=== PATIENT | male | born 1980 | race Caucasian/White ===

== ENCOUNTER 2018-08-08 17:49 | Emergency (ER) | payer OTHER ==
[2018-08-08 18:32] LABS: ADD MAN DIFF? NO
[2018-08-08 18:36] LABS: WHITE BLOOD COUNT 4.6 10^3/ul (4.8-10.8)
[2018-08-08 18:36] LABS: ABNORMAL IP MESSAGE 1; BASOPHILS % 0.4 % (0.0-2.0); EOSINOPHILS # 0.2 10^3/ul (0.0-0.5); EOSINOPHILS % 3.7 % (0.0-7.0); HEMATOCRIT 28.8 % (42.0-52.0); HEMOGLOBIN 9.1 g/dl (14.0-18.0); LYMPHOCYTES # 0.4 10^3/ul (0.8-2.9); LYMPHOCYTES % 8.6 % (15.0-51.0); MEAN CORPUSCULAR HEMOGLOBIN 29.7 pg (29.0-33.0); MEAN CORPUSCULAR HGB CONC 31.6 g/dl (32.0-37.0); MEAN CORPUSCULAR VOLUME 94.1 fl (82.0-101.0); MEAN PLATELET VOLUME 9.7 fl (7.4-10.4); MONOCYTE # 0.5 10^3/ul (0.3-0.9); MONOCYTES % 10.8 % (0.0-11.0); NEUTROPHIL # 3.5 10^3/ul (1.6-7.5); NEUTROPHILS % 76.1 % (39.0-77.0); PLATELET COUNT 135 10^3/UL (140-415); POSITIVE DIFF @See below; RED BLOOD COUNT 3.06 10^6/ul (4.70-6.10); RED CELL DISTRIBUTION WIDTH 14.6 % (11.5-14.5)
[2018-08-08] MEDS: HYDROmorphONE 0.5 MG/0.5 ML SYG IV (18:48)
[2018-08-08] MEDS: PANTOPRAZOLE IV 80 MG in SOD CHLORIDE 0.9% 100 ML IVPB (18:49)
[2018-08-08 18:51] LABS: INR 0.95; PROTIME 12.8 Sec (11.9-14.9)
[2018-08-08 18:58] LABS: ALANINE AMINOTRANSFERASE 23 IU/L (13-69); ALBUMIN 4.3 g/dl (3.3-4.9); ALBUMIN/GLOBULIN RATIO 1.86; ALKALINE PHOSPHATASE 96 IU/L (42-121); ANION GAP 16 (8-16); ASPARTATE AMINO TRANSFERASE 27 IU/L (15-46); BILIRUBIN,INDIRECT 0.1 mg/dl (0-1.1); BILIRUBIN,TOTAL 0.1 mg/dl (0.2-1.3); BLOOD UREA NITROGEN 32 mg/dl (7-20); CALCIUM 10.9 mg/dl (8.4-10.2); CARBON DIOXIDE 27 mmol/L (21-31); CHLORIDE 98 mmol/L (97-110); CREATININE 9.02 mg/dl (0.61-1.24); GLUCOSE 117 mg/dl (70-220); SODIUM 136 mmol/L (135-144); TOTAL PROTEIN 6.6 g/dl (6.1-8.1)
[2018-08-08 19:01] LABS: POTASSIUM 5.3 mmol/L (3.5-5.1)
[2018-08-08 19:11] LABS: TROPONIN-I 0.013 ng/ml (0.000-0.120)
[2018-08-08 19:37] LABS: OCCULT BLOOD STOOL NEGATIVE (NEGATIVE)
[2018-08-08] MEDS: LIDOCAINE/MYLANTA 40 ML BTL PO (20:30)
[2018-08-08] MEDS: SOD CHLORIDE 0.9% 500 ML IV (20:30)
[2018-08-08] MEDS: ONDANSETRON 4 MG INJ IV (20:30)
== END 2018-08-08 22:02 | disposition home or self-care (01) ==
LOC: E/R 17:49
DX: R19.7 Diarrhea, unspecified (principal); D64.9 Anemia, unspecified; D69.6 Thrombocytopenia, unspecified; E87.5 Hyperkalemia; K59.00 Constipation, unspecified; N30.91 Cystitis, unspecified with hematuria; I12.0 Hypertensive chronic kidney disease with stage 5 chronic kidney disease or end stage renal disease; N18.6 End stage renal disease; Z79.82 Long term (current) use of aspirin; Z72.89 Other problems related to lifestyle; Z95.0 Presence of cardiac pacemaker; Z99.2 Dependence on renal dialysis
CPT/HCPCS: 71045; 74176; 80053; 82270; 84484; 85025; 85610; 85730; 86850; 86870; 86900; 86901; 86902; 93005; 96374; 96375; 99285-25

== ENCOUNTER 2019-02-19 11:59 | Emergency (ER) | payer OTHER ==
[~2019-02-19 11:59] MED LIST: NIFEdipine (XL) 90 MG TAB PO
[2019-02-19 12:39] LABS: ADD MAN DIFF? NO
[2019-02-19 12:41] LABS: WHITE BLOOD COUNT 5.3 10^3/ul (4.8-10.8)
[2019-02-19 12:41] LABS: ABNORMAL IP MESSAGE 1; BASOPHILS % 0.4 % (0.0-2.0); EOSINOPHILS # 0.2 10^3/ul (0.0-0.5); EOSINOPHILS % 2.8 % (0.0-7.0); HEMATOCRIT 28.8 % (42.0-52.0); HEMOGLOBIN 9.3 g/dl (14.0-18.0); LYMPHOCYTES # 0.3 10^3/ul (0.8-2.9); LYMPHOCYTES % 6.3 % (15.0-51.0); MEAN CORPUSCULAR HEMOGLOBIN 29.8 pg (29.0-33.0); MEAN CORPUSCULAR HGB CONC 32.3 g/dl (32.0-37.0); MEAN CORPUSCULAR VOLUME 92.3 fl (82.0-101.0); MEAN PLATELET VOLUME 9.2 fl (7.4-10.4); MONOCYTE # 0.5 10^3/ul (0.3-0.9); MONOCYTES % 9.5 % (0.0-11.0); NEUTROPHIL # 4.3 10^3/ul (1.6-7.5); NEUTROPHILS % 80.6 % (39.0-77.0); PLATELET COUNT 153 10^3/UL (140-415); POSITIVE DIFF @See below; RED BLOOD COUNT 3.12 10^6/ul (4.70-6.10); RED CELL DISTRIBUTION WIDTH 14.2 % (11.5-14.5)
[2019-02-19] MEDS: ASPIRIN 81 MG TAB PO (12:44)
[2019-02-19] MEDS: ONDANSETRON 4 MG INJ IV ×2 (12:45→14:27)
[2019-02-19] MEDS: morphine 4 MG/ML VIAL IV (12:46)
[2019-02-19] MEDS: hydrALAzine 20 MG INJ IV ×2 (12:49→14:35)
[2019-02-19] MEDS: CALCIUM GLUCONATE 10% 1 GM in DEXTROSE 5% 100 ML IVPB (12:49)
[2019-02-19 13:00] LABS: INR 0.84; PROTIME 11.6 Sec (11.9-14.9); PT RATIO 0.9
[2019-02-19 13:01] LABS: PARTIAL THROMBOPLASTIN TIME 34.7 Sec (23.0-35.0)
[2019-02-19 13:03] LABS: ALANINE AMINOTRANSFERASE 20 IU/L (13-69); ALBUMIN 4.5 g/dl (3.3-4.9); ALBUMIN/GLOBULIN RATIO 1.55; ALKALINE PHOSPHATASE 119 IU/L (42-121); ANION GAP 15 (5-13); ASPARTATE AMINO TRANSFERASE 28 IU/L (15-46); BLOOD UREA NITROGEN 54 mg/dl (7-20); CALCIUM 10.6 mg/dl (8.4-10.2); CARBON DIOXIDE 22 mmol/L (21-31); CHLORIDE 96 mmol/L (97-110); GLUCOSE 130 mg/dl (70-220); LIPASE 160 U/L (23-300); SODIUM 133 mmol/L (135-144); TOTAL PROTEIN 7.4 g/dl (6.1-8.1)
[2019-02-19 13:05] LABS: POTASSIUM 5.9 mmol/L (3.5-5.1)
[2019-02-19 13:09] LABS: Estimated GFR 4 mL/min (>60)
[2019-02-19 13:12] LABS: CREATININE 13.85 mg/dl (0.61-1.24)
[2019-02-19 13:14] LABS: TROPONIN-I < 0.012 ng/ml (0.000-0.120)
[2019-02-19] MEDS: HYDROmorphONE 0.5 MG/0.5 ML SYG IV (13:53)
[2019-02-19] MEDS: DIPHENHYDRAMINE 50 MG INJ IV ×2 (14:28→16:16)
[2019-02-19] MEDS: NA BICARBONATE 8.4% 50 ML SYG IV (14:28)
[2019-02-19] MEDS ORDERED: ONDANSETRON 4 MG INJ IV ×2 (14:30→19:30)
[2019-02-19] MEDS ORDERED: ACETAMINOPHEN 325 MG TAB PO ×2 (14:30→19:30)
[2019-02-19] MEDS: LORAZEPAM 2 MG INJ IV ×2 (14:40→16:16)
[2019-02-19] MEDS: NA POLYST SULFON 15 GM/60 ML BTL PO (16:16)
[2019-02-19] MEDS: KETOROLAC 15 MG INJ IV (17:35)
[2019-02-19] MEDS: LABETALOL HCL 20MG INJ IV ×2 (18:03→19:21)
[2019-02-19] MEDS ORDERED: HYDROCODONE/APAP (5/325) TAB PO (19:30)
[2019-02-19] MEDS ORDERED: LABETALOL HCL 20MG INJ IV (19:30)
[2019-02-19] MEDS ORDERED: DIPHENHYDRAMINE 50 MG CAP PO (19:30)
[2019-02-19] MEDS ORDERED: LISINOPRIL 20 MG TAB PO (19:30)
[2019-02-19] MEDS ORDERED: ZOLPIDEM 5 MG TAB PO (19:30)
[2019-02-19] MEDS ORDERED: morphine 2 MG INJ IV (19:30)
[2019-02-19] MEDS ORDERED: NACL 0.9% 3 ML SYG IV (19:30)
[2019-02-19] MEDS ORDERED: DOCUSATE SODIUM 100 MG CAP PO (19:30)
[2019-02-19] MEDS ORDERED: ISOSORBIDE MONONITRATE(SR)30 MG TAB PO (19:30)
[2019-02-19] MEDS ORDERED: ATORVASTATIN 20 MG TAB PO (21:00)
[2019-02-20] MEDS ORDERED: SEVELAMER CARBONATE 0.8 GM PKT PO (08:00)
== END 2019-02-19 19:39 | disposition left against medical advice (07) ==
LOC: E/R 19:39
DX: E87.5 Hyperkalemia (principal); I12.0 Hypertensive chronic kidney disease with stage 5 chronic kidney disease or end stage renal disease; N18.6 End stage renal disease; R11.2 Nausea with vomiting, unspecified; I16.0 Hypertensive urgency; Z79.82 Long term (current) use of aspirin; Z99.2 Dependence on renal dialysis
CPT/HCPCS: 36415; 71045; 74176; 80053; 83690; 84484; 85025; 85610; 85730; 93005; 96374; 96375; 96376; 99285-25